=== PATIENT | female | born 1995 | race Two or more races ===

== ENCOUNTER 2023-11-13 05:06 | Inpatient (IN) | payer OTHER ==
[~2023-11-13] VITALS: Ht 162.6 cm; Wt 78.0 kg
[2023-11-13] MEDS ORDERED: PRENATAL TABLE1 EAC1 PO (06:02)
[2023-11-13] MEDS ORDERED: RINGERS SOLUTION,LACTATED 1,000 ML IV SCH (06:15)
[2023-11-13 06:25] LABS: PH,URINE 6.5 (5.0-8.0); URINE APPEARANCE Clear; URINE BILIRRUBIN Negative (NEGATIVE); URINE BLOOD Negative; URINE COLOR Yellow; URINE GLUCOSE Negative (NEGATIVE); URINE LEUKOCYTE Negative; URINE NITRATE Negative; URINE PROTEIN Trace (NEGATIVE)
[2023-11-13 06:26] LABS: URINE EPITHELIAL CELLS 13.1 uL (0.0-38.8); URINE WBC 9.4 uL (0.0-23.2)
[2023-11-13 06:37] LABS: HEMATOCRIT 37.1 % (36.0-45.00); HEMOGLOBIN 12.9 g/dL (12.0-15.00); MEAN CELL VOLUME 95.1 fL (80.00-100.00); MEAN CORPUSCULAR HEMOGLOBIN 33.1 pg (27.00-32.0); MEAN CORPUSCULAR HGB CONC 34.8 g/dl (32.0-36.0); PLATELET COUNT 178 K/uL (150-450); RED CELL DISTRIBUTION WIDTH 13.5 % (11.5-14.5)
[2023-11-13 06:39] LABS: URINE RBC 1.5 uL (0.0-20.8)
[2023-11-13 07:05] LABS: INR < 0.93; PARTIAL THROMBOPLASTIN TIME 30.8 SECONDS (22.0-34.0); PROTHROMBIN TIME 9.8 SECONDS (9.0-11.5)
[2023-11-13 07:13] LABS: ALBUMIN 2.7 gm/dL (3.4-5.0); BILIRUBIN TOTAL 0.26 mg/dL (0.3-1.2); CALCIUM 9.2 mg/dL (8.5-10.1); CREATININE SERUM 0.68 mg/dL (0.55-1.02); GFR 103.03; GLOBULINA 3.6 G/DL (2.4-3.5); POTASSIUM 3.75 mEq/L (3.5-5.1); TOTAL PROTEIN 6.3 gm/dL (6.4-8.2)
[2023-11-13] MEDS ORDERED: MISOPROSTOL 50 MCG TABLET VAG ONE (09:15)
[2023-11-13] MEDS ORDERED: OXYTOCIN 500 ML IV ONE (14:00)
[2023-11-13] MEDS ORDERED: OXYTOCIN 20 UNITS/500ML RL PIGGYBAG IV ONE (14:02)
[2023-11-13] MEDS ORDERED: PROMETHAZINE HCL 25 MG/ML AMPUL IV ONE (16:00)
[2023-11-13] MEDS ORDERED: MEPERIDINE HCL/PF 50 MG/ML VIAL IV ONE (16:00)
[2023-11-13] MEDS ORDERED: CEFAZOLIN SODIUM 1,000 MG VIAL ONE (18:29)
[2023-11-13] MEDS ORDERED: CEFAZOLIN SODIUM 1,000 MG VIAL IV SCH (18:45)
[2023-11-13] MEDS ORDERED: OXYTOCIN 10 UNITS/ML VIAL ONE ×2 (18:47→22:03)
[2023-11-13] MEDS ORDERED: ERYTHROMYCIN BASE 1 GM TUBE OP ONE (18:47)
[2023-11-13] MEDS ORDERED: PROMETHAZINE HCL 50 MG/ML AMPUL IM SCH (20:30)
[2023-11-13] MEDS ORDERED: KETOROLAC TROMETHAMINE 60 MG VIAL IM ONE (20:30)
[2023-11-13] MEDS ORDERED: MEPERIDINE HCL/PF 50 MG/ML VIAL IV SCH (20:30)
[2023-11-13 21:55] LABS: ABG PH 7.218 (7.35-7.45); ABG PO2 15.8 mmHg (80-100); ABG pCO2 55.3 mmHg (35-45); SaO2 14.2 %
[2023-11-13 21:56] LABS: BASE EXCESS -6.4 mmol/l; Tco2 23.7 mmol/l; o2 21 %
[2023-11-14 03:16] LABS: HEMOGLOBIN 12.6 g/dL (12.0-15.00); MEAN CELL VOLUME 93.7 fL (80.00-100.00); MEAN CORPUSCULAR HGB CONC 34.1 g/dl (32.0-36.0); PLATELET COUNT 166 K/uL (150-450); RED BLOOD COUNT 3.95 M/uL (4.00-6.00); RED CELL DISTRIBUTION WIDTH 13.3 % (11.5-14.5)
[2023-11-14] MEDS ORDERED: OxyCODONE HCL/APAP UD (PERCOCET) PO SCH (09:00)
[2023-11-14] MEDS ORDERED: DOCUSATE CALCIUM 240 MG CAPSULE PO SCH (09:00)
[2023-11-14] MEDS ORDERED: SIMETHICONE 125 MG CAPSULE PO SCH (09:00)
[2023-11-14] MEDS ORDERED: FF) RHO(D) IMMUNE GLOBULIN (POM) IM ONE (17:30)
[2023-11-16] MEDS ORDERED: SURFAK240 M1 PO (11:14)
[2023-11-16] MEDS ORDERED: IBU800 MG PO (11:14)
== END 2023-11-16 14:42 | disposition home or self-care (01) | DRG 788 ==
LOC: LDR 05:06 → OB/GYN 05:06 → O/R 05:06 → OB/GYN 21:30
PROVIDERS: ADMIT Specialist; ATTEND Specialist
PROC: 3E033VJ Introduction of Other Hormone into Peripheral Vein, Percutaneous Approach (ICD-10-PCS; 2023-11-13)
PROC: 3E0P7VZ Introduction of Hormone into Female Reproductive, Via Natural or Artificial Opening (ICD-10-PCS; 2023-11-13)
PROC: 4A1HXCZ Monitoring of Products of Conception, Cardiac Rate, External Approach (ICD-10-PCS; 2023-11-13)
PROC: 10D00Z1 Extraction of Products of Conception, Low, Open Approach (ICD-10-PCS; principal; 2023-11-13 20:15)
DX: O82 Encounter for cesarean delivery without indication (principal); O48.0 Post-term pregnancy; Z3A.40 40 weeks gestation of pregnancy; Z37.0 Single live birth; Z20.822 Contact with and (suspected) exposure to COVID-19